=== PATIENT | male | born 1960 | race Caucasian/White ===

== ENCOUNTER 2023-06-05 06:04 | Day surgery (SDC) | payer BC, OTHER ==
[~2023-06-05] VITALS: Ht 175.3 cm; Wt 97.5 kg
[2023-06-05] VITALS (12 sets, daily range): BP systolic 130–163; BP diastolic 75–94; PULSE 51–65; RESP 10–17; TEMP 97.7; O2SAT 93–100
[~2023-06-05 06:04] MED LIST: AMLO-139 PO; CHOL4POW4 PO; DOCUMENT DATE & TIME OF BETA-BLOCKER PO ONE; ENZA40TA PO; RELU120T PO; ROSU20TA73 PO; SOTA80TA73 PO; famotidine 20mg tablet PO ONE; oxymetazoline 15 ML nasal spray NS ONE; ringers solution, lacted 1,000 ML IV SCH; tranexamic acid inj. 1,000 MG in normal saline IV soln 100ML IV ONE
[2023-06-05] MEDS ORDERED: LIDOcaine 1% W/epiNEPHrine 1:100,000 20ml vial ONE (06:51)
[2023-06-05] MEDS ORDERED: cocaine 4% topical solution 4ml bottle ONE (06:51)
[2023-06-05] MEDS ORDERED: tranexamic acid 100mg/ml inj. ONE (06:51)
[2023-06-05] MEDS ORDERED: oxymetazoline 15 ML nasal spray NS ONE ×2 (06:52→07:00)
[2023-06-05] MEDS ORDERED: epiNEPHrine 1 mg/ml 30ml MDV ONE (06:52)
[2023-06-05] MEDS ORDERED: mupirocin 2% ointment 22GM ONE ×2 (06:52→07:12)
[2023-06-05] MEDS ORDERED: epiNEPHrine 1 mg/ml 30ml MDV SQ ONE (07:00)
[2023-06-05] MEDS ORDERED: LIDOcaine 1% W/epiNEPHrine 1:100,000 20ml vial IJ ONE (07:00)
[2023-06-05] MEDS ORDERED: mupirocin 2% ointment 22GM TP ONE (07:00)
[2023-06-05] MEDS ORDERED: cocaine 4% topical solution 4ml bottle TP ONE (07:00)
[2023-06-05] MEDS ORDERED: bacitracin 15gm ointment TP ONE (07:11)
[2023-06-05] MEDS ORDERED: fentaNYL/PF 50MCG/1 ML 2ML syringe ONE (07:57)
[2023-06-05] MEDS ORDERED: midazolam 1 mg/ML 2ml injection ONE (07:58)
[2023-06-05] MEDS ORDERED: ondansetron/PF 4mg/2ml inj IV PRN (08:05)
[2023-06-05] MEDS ORDERED: ringers solution, lacted 1,000 ML IV SCH (08:05)
[2023-06-05] MEDS ORDERED: proCHLORperazine 10 MG/2 ml inj IV PRN (08:05)
[2023-06-05] MEDS ORDERED: morphine 2 MG/ML inj. syringe IV PRN (08:05)
[2023-06-05] MEDS ORDERED: morphine 4 MG/ML inj SYRINge IV PRN (08:05)
[2023-06-05] MEDS ORDERED: meperidine/PF 25mg/ml syringe IV PRN ×3 (08:05)
[2023-06-05] MEDS ORDERED: sevoflurane 250ml liquid IH ONE (08:08)
[2023-06-05] MEDS ORDERED: propofol inj 20 ML IV ONE (10:20)
[2023-06-05] MEDS ORDERED: LIDOcaine 2% (20mg/ml) 5ml vial ONE (10:20)
[2023-06-05] MEDS ORDERED: ondansetron/PF 4mg/2ml inj ONE (10:20)
[2023-06-05] MEDS ORDERED: dexamethasone sod phosphate 4mg/ml inj. ONE (10:20)
[2023-06-05] MEDS ORDERED: glycopyrrolate 0.2mg/ml inj ONE (10:20)
--- NOTE | 2023-06-05 10:32 | NUR ---
Received from OR via [facility], accompanied by Anesthesiologist and report given by KALI Anesthesiologist. PATIENT WAKING UP, DENIES PAIN, VSS, 20G PIV TO RIGHT HAND, BILATERAL COTTONOID DRESSING C/D/I. Addendum: 06/05/23 at 1121 by Dakota Aponte RN Amended: Links added.
[2023-06-05] MEDS ORDERED: hydrALAZINE 20mg/ml inj. IV PRN (10:40)
[2023-06-05] MEDS ORDERED: hydrALAZINE 20mg/ml inj. IV ONE (10:40)
[2023-06-05] MEDS ORDERED: salt irrigation nasal spray 45 ML SPRAY NS PRN (11:10)
--- NOTE | 2023-06-05 11:20 | NUR ---
PULLED BILATERAL COTTONOID DRESSING. NO S/S OF BLEEDING AT THIS TIME. WILL KEEP MONITORING. Addendum: 06/05/23 at 1223 by Dakota Aponte RN Amended: Links added.
[2023-06-05] MEDS ORDERED: mupirocin 2% nasal ointment 1gm UD NS ONE (11:40)
--- NOTE | 2023-06-05 12:12 | NUR ---
PT UP AND DRESSED, ABLE TO VOID, VSS, DENIES ANY PAIN, PIV D/CD- CANNULA INTACT, DISCUSSED HOME CARE FOR NASAL IRRIGATION AND MEDICATIONS, PT USED OCEAN SPRAY AND OINTMENT BEFORE LEAVING, ALL QUESTIONS ANSWERED, FRESH GAUZE PLACE UNDER NOSE, PT TAKEN WITH SUPPLIES AND BELONGINGS TO VEHICLE, TRANSPORTED BY FAMILY HOME. Addendum: 06/05/23 at 1223 by Dakota Aponte RN Amended: Links added.
== END 2023-06-05 12:12 | disposition home or self-care (01) ==
LOC: PAS 06:04
PROVIDERS: ATTEND Otolaryngology
DX: J34.2 Deviated nasal septum (principal); J32.8 Other chronic sinusitis; J33.8 Other polyp of sinus; I48.91 Unspecified atrial fibrillation; G47.33 Obstructive sleep apnea (adult) (pediatric); I10 Essential (primary) hypertension; K21.9 Gastro-esophageal reflux disease without esophagitis; Z90.49 Acquired absence of other specified parts of digestive tract; Z98.890 Other specified postprocedural states; Z98.49 Cataract extraction status, unspecified eye; Z87.891 Personal history of nicotine dependence; Z85.46 Personal history of malignant neoplasm of prostate; Z90.79 Acquired absence of other genital organ(s); Z79.899 Other long term (current) drug therapy
CPT/HCPCS: 30520; 31254; 31267; 61782; 82948; 93005; A6402; J0171; J0360; J1100; J2175; J2250; J2270; J2405; J2704; J3010; J3490; J7030; J7050; J7120; Z7506; Z7508; Z7512; A4618; A6449; A7000

== ENCOUNTER 2023-09-04 07:41 | Day surgery (SDC) | payer BC, OTHER ==
[2023-09-04] VITALS (28 sets, daily range): BP systolic 148–203; BP diastolic 76–116; PULSE 58–73; RESP 11–17; TEMP 97.9; O2SAT 91–100
[~2023-09-04] VITALS: Ht 175.3 cm; Wt 95.3 kg
[~2023-09-04 07:41] MED LIST changes: -DOCUMENT DATE & TIME OF BETA-BLOCKER PO ONE; +FLO0.4C PO; +MOME17SP15 NAS; +cocaine 4% topical solution 4ml bottle ONE; +epiNEPHrine 1 mg/ml 30ml MDV ONE; +mupirocin 2% ointment 22GM ONE
[2023-09-04] MEDS ORDERED: labetalol 20mg/4ml (5mg/ml) syringe IV PRN (08:45)
[2023-09-04] MEDS ORDERED: morphine 4 MG/ML inj SYRINge IV PRN (08:45)
[2023-09-04] MEDS ORDERED: morphine 2 MG/ML inj. syringe IV PRN (08:45)
[2023-09-04] MEDS ORDERED: ringers solution, lacted 1,000 ML IV SCH (08:45)
[2023-09-04] MEDS ORDERED: meperidine/PF 25mg/ml syringe IV PRN ×3 (08:45)
[2023-09-04] MEDS ORDERED: proCHLORperazine 10 MG/2 ml inj IV PRN (08:45)
[2023-09-04] MEDS ORDERED: ondansetron/PF 4mg/2ml inj IV PRN (08:45)
[2023-09-04] MEDS ORDERED: fentaNYL/PF 50MCG/1 ML 2ML syringe ONE (09:05)
[2023-09-04] MEDS ORDERED: LIDOcaine 2% (20mg/ml) 5ml vial ONE (09:05)
[2023-09-04] MEDS ORDERED: midazolam 1 mg/ML 2ml injection ONE (09:05)
[2023-09-04] MEDS ORDERED: propofol inj 20 ML IV ONE (09:05)
[2023-09-04] MEDS ORDERED: ondansetron/PF 4mg/2ml inj ONE (09:05)
[2023-09-04] MEDS ORDERED: epiNEPHrine 1 mg/ml 30ml MDV ONE (09:27)
[2023-09-04] MEDS ORDERED: tranexamic acid 100mg/ml inj. ONE (09:27)
[2023-09-04] MEDS ORDERED: dexamethasone sod phosphate 10mg/ml inj ONE (09:36)
[2023-09-04] MEDS ORDERED: sevoflurane 250ml liquid IH ONE (09:36)
[2023-09-04] MEDS ORDERED: LIDOcaine 1% w/EPI 1:100,000 30ml vial (MDV) IJ ONE (10:25)
--- NOTE | 2023-09-04 11:28 | NUR ---
Received from OR via [facility], accompanied by Anesthesiologist and report given by TREVOR Anesthesiologist. PATIENT WAKING UP, DENIES PAIN, VSS, 20G PIV TO RIGHT AC, BILATERAL NASAL COTTONOID DRESSING C/D/I. Addendum: 09/04/23 at 1143 by Dakota Aponte RN Amended: Links added.
[2023-09-04] MEDS: enalaprilat dihydrate 2.5mg/2ml vial IV PRN ×4 (11:33→12:14)
[2023-09-04] MEDS ORDERED: salt irrigation nasal spray 45 ML SPRAY NS PRN (11:40)
[2023-09-04] MEDS ORDERED: mupirocin 2% nasal ointment 1gm UD NS ONE (11:40)
[2023-09-04] MEDS ORDERED: hydrALAZINE 20mg/ml inj. IV PRN (12:15)
--- NOTE | 2023-09-04 13:48 | NUR ---
PT UP AND DRESSED, ABLE TO VOID, VSS, DENIES ANY PAIN, PIV D/CD- CANNULA INTACT, DISCUSSED HOME CARE FOR NASAL IRRIGATION AND MEDICATIONS, PT USED OCEAN SPRAY AND OINTMENT BEFORE LEAVING, ALL QUESTIONS ANSWERED, FRESH GAUZE PLACE UNDER NOSE, PT TAKEN WITH SUPPLIES AND BELONGINGS TO VEHICLE, TRANSPORTED BY SPOUSE HOME. Addendum: 09/04/23 at 1351 by Dakota Aponte RN Amended: Links added.
== END 2023-09-04 13:48 | disposition home or self-care (01) ==
LOC: PAS 07:41
PROVIDERS: ATTEND Otolaryngology
DX: J32.8 Other chronic sinusitis (principal); J33.8 Other polyp of sinus; G47.30 Sleep apnea, unspecified; K21.9 Gastro-esophageal reflux disease without esophagitis; I10 Essential (primary) hypertension; E78.5 Hyperlipidemia, unspecified; I48.91 Unspecified atrial fibrillation; Z87.891 Personal history of nicotine dependence; Z90.49 Acquired absence of other specified parts of digestive tract; Z98.890 Other specified postprocedural states; Z98.41 Cataract extraction status, right eye; Z98.42 Cataract extraction status, left eye; Z85.46 Personal history of malignant neoplasm of prostate; Z79.899 Other long term (current) drug therapy
CPT/HCPCS: 31259; 31276; 61782; 82948; A6402; J0171; J0360; J0780; J1100; J2175; J2250; J2270; J2405; J2704; J3010; J3490; J7030; J7050; J7120; Z7506; Z7508; Z7512; A4618; A6449; A7000